=== PATIENT | female | born 1980 | race Caucasian/White ===

== ENCOUNTER → 2017-05-26 | Outpatient (CLI) | payer MEDICAID ==
[2017-05-26 13:53] LABS: HCT 34.2 % (34.0-46.0); HGB 11.2 gm/dL (11.4-16.0); MCH 31.6 pg (25.0-35.0); MCHC 32.8 g/dL (31.0-37.0); MCV 96.2 fL (80.0-100.0); Mean Platelet Volume 8.2; Platelet Count 210 k/uL (150-450); RBC 3.55 m/uL (3.80-5.40); RDW 12.6 % (11.5-15.5); WBC 9.8 k/uL (3.8-10.6)
[2017-05-26 13:59] LABS: Appearance,Urine Cloudy (Clear); Bilirubin,Urine Negative (Negative); Blood,Urine Negative (Negative); Color,Urine Yellow; Glucose,Urine (UA) Negative (Negative); Ketones,Urine Negative (Negative); Leukocyte Esterase,Urine Moderate (Negative); Mucus,Urine Occasional /hpf; Nitrite,Urine Negative (Negative); PH, Urine 6.5 (5.0-8.0); Protein,Urine Trace (Negative); RBC,Urine 2 /hpf (0-5); Specific Gravity,Urine 1.017 (1.001-1.035); Squamous Epithelial Cell,Urine 13 /hpf (0-4); Urobilinogen,Urine <2.0 mg/dL (<2.0); WBC,Urine 7 /hpf (0-5)
[2017-05-26 14:03] LABS: Glucose 87 mg/dL (74-99)
[2017-05-26 20:03] LABS: HIV AB P24 Non-Reactive (Non-Reactive); HIV P24 AG Non-Reactive (Non-Reactive)
[2017-05-27 06:25] LABS: Toxoplasma Antibody (IgG) <3.0 IU/mL (<7.2); Toxoplasma Antibody (IgM) <3.0 AU/mL (<8.0)
== END | disposition home or self-care (01) ==
LOC: LABWHC1 12:59
PROVIDERS: ATTEND Obstetrics & Gynecology
DX: Z34.02 Encounter for supervision of normal first pregnancy, second trimester (principal); Z3A.00 Weeks of gestation of pregnancy not specified
CPT/HCPCS: 36415; 81001; 82565; 82947; 85027; 86762; 86777; 86778; 86780; 86850; 86900; 86901; 87086; 87340; 87390

== ENCOUNTER 2017-07-14 14:18 | Outpatient (CLI) | payer MEDICAID ==
[2017-07-14 14:55] LABS: Appearance,Urine Clear (Clear); Bacteria,Urine Rare /hpf; Bilirubin,Urine Negative (Negative); Blood,Urine Negative (Negative); Color,Urine Light Yellow; Glucose,Urine (UA) Negative (Negative); Hyaline Casts,Urine 1 /lpf (0-2); Ketones,Urine Negative (Negative); Leukocyte Esterase,Urine Moderate (Negative); Mucus,Urine Rare /hpf; Nitrite,Urine Negative (Negative); Protein,Urine Negative (Negative); RBC,Urine 1 /hpf (0-5); Specific Gravity,Urine 1.008 (1.001-1.035); Squamous Epithelial Cell,Urine 4 /hpf (0-4); Urobilinogen,Urine <2.0 mg/dL (<2.0); WBC,Urine 3 /hpf (0-5)
[2017-07-14 15:31] LABS: Basophils % (A) 0 %; Eosinophils # (A) 0.1 k/uL (0-0.7); Eosinophils % (A) 1 %; HCT 37.7 % (34.0-46.0); HGB 12.3 gm/dL (11.4-16.0); Lymphocytes # (A) 2.1 k/uL (1.0-4.8); Lymphocytes % (A) 19 %; MCH 30.4 pg (25.0-35.0); MCHC 32.7 g/dL (31.0-37.0); MCV 92.8 fL (80.0-100.0); Mean Platelet Volume 8.7; Monocytes # (A) 0.7 k/uL (0-1.0); Monocytes % (A) 6 %; Neutrophils # (A) 8.2 k/uL (1.3-7.7); Neutrophils % (A) 72 %; Platelet Count 203 k/uL (150-450); RBC 4.06 m/uL (3.80-5.40); RDW 13.1 % (11.5-15.5); WBC 11.4 k/uL (3.8-10.6)
[2017-07-14 15:45] LABS: ALT 22 U/L (9-52); AST 21 U/L (14-36); Blood Urea Nitrogen 5 mg/dL (7-17); LDH 507 U/L (313-618); Uric Acid 2.6 mg/dL (3.7-7.4)
== END 2017-07-14 16:45 | disposition home or self-care (01) ==
LOC: FBPOP 14:18
PROVIDERS: ATTEND Obstetrics & Gynecology
DX: O13.3 Gestational [pregnancy-induced] hypertension without significant proteinuria, third trimester (principal); Z3A.30 30 weeks gestation of pregnancy
CPT/HCPCS: 59025; 81001; 82565; 83615; 84450; 84460; 84520; 84550; 85025

== ENCOUNTER → 2017-07-28 | Outpatient (CLI) | payer MEDICAID ==
--- NOTE | 2017-07-28 14:52 | US ---
EXAMINATION TYPE: US OB >= 14 wk fetus DATE OF EXAM: 07/28/2017 COMPARISON: None CLINICAL HISTORY: O36.63X0 LARGE FOR DATES: Growth TECHNIQUE: OBTA GESTATIONAL AGE / DATING Physician Established: (32 weeks/6 days) EDC: 09/16/2017 Dates by LMP: LMP unknown Dates by First Scan: No previous this is first scan here Dates by Current Scan: (33 weeks/3 days) EDC: 09/12/2017 SURVEY IUP: Single PLACENTA: Fundal, grade 3 PREVIA: No Previa DIEGO: 17.8 cm CERVICAL LENGTH (transabdominal: norm > 3.0cm): 4.3 cm BIOMETRY PRESENTATION: Vertex LIE: Longitudinal BPD: 8.6 cm 34 weeks / 5 days HC: 30.3 cm 33 weeks / 5 days AC: 29.2 cm 33 weeks / 2 days FL: 6.1 cm 31 weeks / 5 days ESTIMATED WEIGHT IN GRAMS: 2083 grams ESTIMATED WEIGHT IN LBS/OZ: 4 lbs. 9 oz. WEIGHT PERCENTAGE BASED ON ESTABLISHED DATES: 43% HC/AC: 1.0 Normal FL/AC: 21 Normal HEART RATE: 138 bpm RHYTHM: Normal IMPRESSION: Single live intrauterine with a sonographic gestational age of 33 weeks and 3 days and shani mated date of delivery of 09/12/2017, concordant with menstrual age. Weight percentage based on establ ished dates of 43%.
== END | disposition home or self-care (01) ==
LOC: RADUSWWP 13:37
PROVIDERS: ATTEND Obstetrics & Gynecology
DX: O36.63X0 Maternal care for excessive fetal growth, third trimester, not applicable or unspecified (principal); Z3A.33 33 weeks gestation of pregnancy
CPT/HCPCS: 76805

== ENCOUNTER 2017-08-24 18:30 | Outpatient (CLI) | payer MEDICAID ==
[2017-08-24 19:08] VITALS: BP 126/90; PULSE 106; RESP 18; TEMP 98.9
[2017-08-24 19:09] LABS: Appearance,Urine Cloudy (Clear); Bacteria,Urine Rare /hpf; Bilirubin,Urine Negative (Negative); Blood,Urine Negative (Negative); Budding Yeast,Urine Occasional /hpf; Color,Urine Yellow; Glucose,Urine (UA) Negative (Negative); Ketones,Urine Negative (Negative); Leukocyte Esterase,Urine Large (Negative); Mucus,Urine Rare /hpf; Nitrite,Urine Negative (Negative); Protein,Urine Negative (Negative); RBC,Urine 5 /hpf (0-5); Specific Gravity,Urine 1.009 (1.001-1.035); Squamous Epithelial Cell,Urine 14 /hpf (0-4); Urobilinogen,Urine <2.0 mg/dL (<2.0); WBC,Urine 14 /hpf (0-5)
[2017-08-24 19:41] LABS: Basophils % (A) 0 %; Eosinophils # (A) 0.2 k/uL (0-0.7); Eosinophils % (A) 1 %; HCT 33.5 % (34.0-46.0); HGB 10.9 gm/dL (11.4-16.0); Lymphocytes # (A) 2.6 k/uL (1.0-4.8); Lymphocytes % (A) 21 %; MCH 28.3 pg (25.0-35.0); MCHC 32.7 g/dL (31.0-37.0); Mean Platelet Volume 9.8; Monocytes # (A) 0.8 k/uL (0-1.0); Monocytes % (A) 6 %; Neutrophils # (A) 8.5 k/uL (1.3-7.7); Neutrophils % (A) 68 %; Platelet Count 190 k/uL (150-450); RBC 3.87 m/uL (3.80-5.40); RDW 13.9 % (11.5-15.5); WBC 12.4 k/uL (3.8-10.6)
[2017-08-24 19:49] LABS: MCV 86.4 fL (80.0-100.0)
[2017-08-24 20:02] LABS: ALT 17 U/L (9-52); AST 15 U/L (14-36); Blood Urea Nitrogen 4 mg/dL (7-17); LDH 370 U/L (313-618)
--- NOTE | 2017-09-06 08:58 | P.MSEPDOC ---
Presenting Problems - Arrival Data Date of Arrival on Unit: 08/24/17 Time of Arrival on Unit: 18:30 Mode of Transport: Ambulatory - Complaint OB-Reason for Admission/Chief Complaint: PIH Comment: 36-5/7 weeks Medical History - Information : 4 Para: 2 Term: 2 : 0 Abortions: Spontaneous or Elective: 1 Number of Living Children: 2 - Gestational Age Gestational Age by JOHANNY (wks/days): 41 Weeks and 1 Days Review of Systems - Review of Systems Constitutional: No problems Breast: No problems ENT: No problems Cardiovascular: No problems Respiratory: No problems Gastrointestinal: No problems Genitourinary: No problems Musculoskeletal: No problems Neurological: No problems Skin: No problems Comment: gall bladder removed 2011 Vital Signs - Temperature Temperature: 98.9 F Temperature Source: Temporal Artery Scan - Pulse Brachial Pulse Rate: 106 Pulse Assessment Method: Automatic Cuff - Respirations Oxygen Delivery Method: Room Air - Blood Pressure Right Arm Blood Pressure: 126/90 Blood Pressure Mean: 102 Blood Pressure Source: Automatic Cuff Medical Screen Scoring (Pre) - Cervical Exam Dilation: Exam Deferred Effacement: Exam Deferred Membranes: Intact - Uterine Contractions Frequency: N/A Duration: N/A Intensity: N/A - Maternal Vital Signs Maternal Temperature: N/A Maternal Blood Pressure: Diastolic > 89 = 1 Signs of Preeclampsia: N/A - Pain Assessment Pain Scale Used: Numeric (1 - 10) Pain Intensity: 0 - Maternal Trauma Maternal Trauma: N/A - Assessment Baseline FHR: 150 Heart Rate - NICHD Category: Category I (Normal) = 0 NST: Reactive - Total Score Total Score (Pre): 1 - Level of Risk Level of Risk: N/A Medical Screen Scoring (Post) - Cervical Exam Dilation: Exam Deferred Effacement: Exam Deferred Membranes: Intact - Uterine Contractions Frequency: N/A - Maternal Vital Signs Maternal Temperature: N/A Maternal Blood Pressure: Diastolic > 89 = 1 Signs of Preeclampsia: N/A Maternal Respirations: N/A - Pain Assessment Pain Intensity: 0 - Total Score Total Score (Post): 1 - Post Treatment Level of Risk Post Treatment Level of Risk: Low (0-5) Physician Notification (Post) - Physician Notified Physician Notified Date: 08/24/17 Physician Notified Time: 20:15 Physician/Practitioner Notified:: Dr Mireles Spoke With: New Order Received: Yes - Notification Comment Comment: discharge pt home to be off work and modified bedrest, follow up on Monday at scheduled appt Disposition - Disposition OB Disposition: Discharge to home, Written follow up instructions reviewed Discharge Date: 08/24/17 Discharge Time: 20:45 I agree with the RN Medical Screening Exam: Yes Risk & Benefit of care provided described in d/c instruction: Yes Diagnosis: UNSPECIFIED MATERNAL HYPERTENSION, THIRD TRIMESTER
== END 2017-08-24 20:45 | disposition home or self-care (01) ==
LOC: FBPOP 18:30
PROVIDERS: ATTEND Obstetrics & Gynecology
DX: O16.3 Unspecified maternal hypertension, third trimester (principal); Z3A.41 41 weeks gestation of pregnancy
CPT/HCPCS: 59025; 81001; 82565; 82570; 83615; 84156; 84450; 84460; 84520; 84550; 85025; 99215

== ENCOUNTER 2017-08-29 07:08 | Inpatient (IN) | payer MEDICAID ==
[2017-08-29 07:54] LABS: Basophils % (A) 0 %; Eosinophils # (A) 0.1 k/uL (0-0.7); Eosinophils % (A) 1 %; HGB 11.2 gm/dL (11.4-16.0); Lymphocytes # (A) 2.2 k/uL (1.0-4.8); Lymphocytes % (A) 19 %; MCH 28.4 pg (25.0-35.0); MCHC 32.9 g/dL (31.0-37.0); MCV 86.3 fL (80.0-100.0); Monocytes # (A) 0.8 k/uL (0-1.0); Monocytes % (A) 7 %; Neutrophils % (A) 70 %; Platelet Count 176 k/uL (150-450); RBC 3.93 m/uL (3.80-5.40); RDW 14.1 % (11.5-15.5); WBC 11.4 k/uL (3.8-10.6)
[2017-08-29] MEDS: LACTATED RINGERS 1,000 ML IV SCH ×3 (07:56→18:15)
[2017-08-29] MEDS: OXYTOCIN 20 UNITS/1000 ML NS 1,000 ML IV SCH ×2 (07:57→19:45)
[2017-08-29 08:17] VITALS: BMI 31.1
[2017-08-29] MEDS ORDERED: AMPICILLIN 2,000 MG in SODIUM CHLORIDE 0.9% 100 ML IVPB STA (08:44)
[2017-08-29] MEDS ORDERED: BUTORPHANOL 1 MG/ML 1 ML VIAL IV PRN (08:44)
[2017-08-29] MEDS: AMPICILLIN 1,000 MG in SODIUM CHLORIDE 0.9% 50 ML IVPB SCH ×3 (12:51→21:16)
[2017-08-29] MEDS ORDERED: fentaNYL (PF) 50 MCG/ML 5 ML AMP ONE (14:25)
[2017-08-29] MEDS ORDERED: SODIUM CHLORIDE 0.9% 100 ML BAG ONE (14:25)
[2017-08-29] MEDS ORDERED: BUPIVACAINE (PF) 0.25% 30 ML VIAL ONE (14:25)
[2017-08-29] MEDS ORDERED: BUPIVACAINE (PF) 0.25% 25 ML, fentaNYL (PF) 200 MCG in SODIUM CHLORIDE 0.9% 71 ML EPIDURAL ONE (15:05)
[2017-08-29] MEDS ORDERED: diphenhydrAMINE 50 MG/ML 1 ML VIAL IVP PRN ×2 (18:49)
[2017-08-29] MEDS ORDERED: HYDROCORTISONE 2.5% RECTAL CREAM 30 GM TUBE RECTAL PRN (18:49)
[2017-08-29] MEDS ORDERED: WITCH HAZEL 1 EACH MED..PAD TOPICAL PRN (18:49)
[2017-08-29] MEDS ORDERED: ZOLPIDEM 5 MG TAB PO PRN (18:49)
[2017-08-29] MEDS ORDERED: BENZOCAINE/MENTHOL SPRAY 1 GM/SPRAY AEROSOL TOPICAL PRN (18:49)
[2017-08-29] MEDS ORDERED: LANOLIN CREAM 5 GM TUBE TOPICAL PRN (18:49)
[2017-08-29] MEDS ORDERED: diphenhydrAMINE 50 MG CAP PO PRN (18:49)
[2017-08-29] MEDS ORDERED: diphenhydrAMINE 25 MG CAP PO PRN (18:49)
[2017-08-29] MEDS ORDERED: ACETAMINOPHEN TAB 325 MG TAB PO PRN (18:49)
[2017-08-29] MEDS ORDERED: SIMETHICONE 80 MG CHEWABLE PO PRN (18:49)
--- NOTE | 2017-08-29 18:52 | P.HPOB ---
History of Present Illness H&P Date: 08/29/17 Chief Complaint: Intrauterine at term: Gestational hypertension S is a 36-year-old at 37 weeks gestation who has gestational hypertension. She is noted to have had slight elevations in her blood pressure since approximately 35 weeks and yesterday in the office was noted have a blood pressure of 150/94 and was scheduled for induction today for same. Her Precis course otherwise was unremarkable and she is feeling well at this time. NST done yesterday was also reactive. Pertinent labs do include AB+ blood type Rh antibody was negative, rubella immune, hepatitis B surface antigen and RPR as well as HIV were all negative. Group B strep was negative. On physical exam vital signs are stable and afebrile. Heart regular, lungs clear, extremities are without pain. Osteopathic exam is unremarkable. She was dilated to 3 cm 80 % effaced and artificial rupture membranes was performed with clear fluid noted. heart tones were in the 130s to 140s and reactive. Abdomen is otherwise gravid. Assessment intrauterine at 37 weeks with gestational hypertension: Induction of labor with Pitocin augmentation and expectation for epidural for analgesia. Past Medical History History of Any Multi-Drug Resistant Organisms: None Reported Past Surgical History: Cholecystectomy, Tonsillectomy Past Psychological History: No Psychological Hx Reported Smoking Status: Former smoker Past Alcohol Use History: None Reported Past Drug Use History: None Reported - Past Family History Mother Additional Family Medical History / Comment(s): mother high BP Medications and Allergies Home Medications Medication Instructions Recorded Confirmed Type Pnv No.95/Ferrous Fum/Folic AC 1 each PO DAILY 07/14/17 08/29/17 History [ Multivitamin Tablet] Allergies Allergy/AdvReac Type Severity Reaction Status Date / Time No Known Allergies Allergy Verified 08/29/17 07:28 Exam Osteopathic Statement: *. No significant issues noted on an osteopathic structural exam other than those noted in the History and Physical/Consult. - Vital Signs Vital signs: Vital Signs Temp Pulse Resp BP Pulse Ox 08/29/17 08:05 97.4 F L 127 H 18 137/98 100 Intake and Output 08/29/17 08/29/17 08/29/17 06:59 14:59 22:59 Intake Total 1000 Balance 1000 Intake: IV 1000 Lactated Ringers 1,000 ml 1000 @ 125 mls/hr IV .Q8H [facility] Rx#:[id number] Other: Weight 74.843 kg Results Result Diagrams: 08/29/17 07:30 Abnormal Lab Results - Last 24 Hours (Table) 08/29/17 Range/Units 07:30 WBC 11.4 H (3.8-10.6) k/uL Hgb 11.2 L (11.4-16.0) gm/dL Neutrophils # 8.0 H (1.3-7.7) k/uL
--- NOTE | 2017-08-29 18:53 | P.PROBDLV ---
Vaginal Delivery Note - . Vaginal Delivery Note: Patient progressed to complete and pushing with spontaneous vaginal delivery of a viable female over intact perineum. Falling deliver the head nuchal cord 1 was reduced and baby was delivered from right occiput anterior position shoulders were easily delivered followed by the remainder the baby. Baby was then placed on mother's abdomen where the umbilical cord was allowed to pulsate for approximately 40 seconds prior to clamping and cutting. Once this was accomplished nursery personnel was present to assume care and placenta was delivered intact. Pitocin was then added to the IV. Mother and baby are stable following delivery. scores and weight are both pending at this time.
[2017-08-29] MEDS: SENNOSIDES-DOCUSATE SODIUM 1 EACH TAB PO SCH (21:16)
[2017-08-30] MEDS: IBUPROFEN 600 MG TAB PO PRN ×3 (04:23→19:44)
[2017-08-30] MEDS: SENNOSIDES-DOCUSATE SODIUM 1 EACH TAB PO SCH ×2 (07:38→20:15)
--- NOTE | 2017-08-30 08:46 | P.PNOBGVD ---
Subjective - Subjective Principal diagnosis: day 1 Interval history: Overall Domitila looks very good this morning. She does have some right flank pain and urinalysis was done. However there is no costovertebral angle tenderness no epigastric pain or other findings. She did have some very mild elevations of blood pressure through the night 130s over 90s. She denies symptoms no epigastric pain no headache no blurry vision deep tendon reflexes are normal and she has no significant edema. Likely pain is secondary to straining from pushing based on how she looks this morning and based on what she is describing. Otherwise she is doing very well. On physical exam vital signs are again stable with only very mildly elevated blood pressures. She is afebrile. Heart regular, lungs clear, extremities without pain. Abdomen soft uterus is firm below the umbilicus and her bowel sounds noted. Preeclamptic labs are pending. We'll plan to continue observation today and make decisions based on discharge later today depending on what her labs her lichen however symptoms evolve. Assessment day 1. Plan continue care. Patient reports: Reports appetite normal, Reports voiding normally, Reports pain well controlled, Reports ambulating normally : doing well Objective - Latest Vital Signs Latest vital signs: Vital Signs Temp Pulse Resp BP 08/30/17 07:49 98.4 F 72 14 144/67 08/30/17 06:01 106 H 143/92 08/30/17 05:00 135/91 08/30/17 04:02 142/100 08/30/17 04:00 98.6 F 95 16 144/102 08/30/17 00:43 108 H 08/30/17 00:00 98.3 F 121 H 16 129/82 08/29/17 20:58 97.9 F 113 H 16 123/77 08/29/17 20:28 97.9 F 107 H 16 147/90 08/29/17 19:58 105 H 16 135/84 08/29/17 19:43 111 H 16 138/76 08/29/17 19:28 98.1 F 111 H 16 137/74 08/29/17 19:13 112 H 16 150/83 08/29/17 18:54 99.1 F 107 H 20 132/75 Intake and Output 08/29/17 08/30/17 08/30/17 22:59 06:59 14:59 Intake Total 35.4 Balance 35.4 Intake: Intake, IV Titration 35.4 Amount Oxytocin 20 Units/1000 ml 35.4 Ns 1,000 ml @ 1 MILLIUNIT/MIN 3 mls/hr IV .Q24H [facility] Rx#:[id number] Other: # Voids 1 1 - Exam Lungs: bilateral: normal Abdomen: Present: other (Right flank and upper abdominal pain)
[2017-08-30 08:55] LABS: ALT 18 U/L (9-52); AST 21 U/L (14-36); Blood Urea Nitrogen 4 mg/dL (7-17); LDH 466 U/L (313-618); Uric Acid 3.2 mg/dL (3.7-7.4)
[2017-08-30 09:02] LABS: Basophils # (A) 0.1 k/uL (0-0.2); Basophils % (A) 0 %; Eosinophils # (A) 0.1 k/uL (0-0.7); Eosinophils % (A) 1 %; Lymphocytes # (A) 1.9 k/uL (1.0-4.8); Lymphocytes % (A) 10 %; MCH 29.4 pg (25.0-35.0); MCHC 33.3 g/dL (31.0-37.0); Mean Platelet Volume 9.5; Monocytes # (A) 0.8 k/uL (0-1.0); Monocytes % (A) 4 %; Neutrophils # (A) 15.1 k/uL (1.3-7.7); Neutrophils % (A) 83 %; Platelet Count 164 k/uL (150-450); RBC 4.09 m/uL (3.80-5.40); WBC 18.3 k/uL (3.8-10.6)
[2017-08-30 16:17] VITALS: RESP 18
[2017-08-31 08:54] VITALS: BP 127/87; PULSE 83; TEMP 97.9
--- NOTE | 2017-08-31 10:24 | P.DS ---
Providers Date of admission: 08/29/17 07:08 Expected date of discharge: 08/31/17 Attending physician: Gonzalo Julian Primary care physician: Stated None Hospital Course: Progress is doing very well post day 2. She is involuting, voiding, and she is tolerating her diet. She voices no complaints. Vital signs are stable and afebrile. Heart regular, lungs clear, extremities without pain. Abdomen is soft uterus is firm lochia is reported be light. Assessment day 2. Plan discharged home follow up with me in 6 weeks. Discharge instructions were thoroughly reviewed and all questions are answered for her prior to her discharge. Patient Condition at Discharge: Good Plan - Discharge Summary New Discharge Prescriptions: No Action Pnv No.95/Ferrous Fum/Folic AC [ Multivitamin Tablet] 1 each PO DAILY Discharge Medication List Pnv No.95/Ferrous Fum/Folic AC [ Multivitamin Tablet] 1 each PO DAILY [History] Follow up Appointment(s)/Referral(s): Gonzalo Julian DO [Doctor of Osteopathic Medicine] - 6 Weeks Activity/Diet/Wound Care/Special Instructions: No heavy lifting, limit stairs and driving, and pelvic rest. If any high temperatures, heavy bleeding, or severe pain call my office Discharge Disposition: HOME SELF-CARE
== END 2017-08-31 12:00 | disposition home or self-care (01) | DRG 775 ==
LOC: 4FBP 07:08
PROVIDERS: ADMIT Obstetrics & Gynecology; ATTEND Obstetrics & Gynecology
PROC: 10E0XZZ Delivery of Products of Conception, External Approach (ICD-10-PCS; principal; 2017-08-29)
PROC: 00HU33Z Insertion of Infusion Device into Spinal Canal, Percutaneous Approach (ICD-10-PCS; 2017-08-29)
PROC: 3E0R3NZ Introduction of Analgesics, Hypnotics, Sedatives into Spinal Canal, Percutaneous Approach (ICD-10-PCS; 2017-08-29)
PROC: 3E033VJ Introduction of Other Hormone into Peripheral Vein, Percutaneous Approach (ICD-10-PCS; 2017-08-29)
PROC: 10907ZC Drainage of Amniotic Fluid, Therapeutic from Products of Conception, Via Natural or Artificial Opening (ICD-10-PCS; 2017-08-29)
DX: O13.4 Gestational [pregnancy-induced] hypertension without significant proteinuria, complicating childbirth (principal); O69.81X0 Labor and delivery complicated by cord around neck, without compression, not applicable or unspecified; Z37.0 Single live birth; Z3A.37 37 weeks gestation of pregnancy; Z90.89 Acquired absence of other organs; Z90.49 Acquired absence of other specified parts of digestive tract; Z87.891 Personal history of nicotine dependence; Z88.6 Allergy status to analgesic agent
CPT/HCPCS: 82565; 83615; 84450; 84460; 84520; 84550; 85025; 88307

== ENCOUNTER → 2017-11-03 | Outpatient (CLI) | payer MEDICAID, OTHER ==
[2017-11-03 14:02] LABS: Basophils % (A) 1 %; Eosinophils # (A) 0.2 k/uL (0-0.7); Eosinophils % (A) 2 %; HCT 42.4 % (34.0-46.0); HGB 14.2 gm/dL (11.4-16.0); Lymphocytes # (A) 2.7 k/uL (1.0-4.8); Lymphocytes % (A) 32 %; MCH 28.8 pg (25.0-35.0); MCHC 33.4 g/dL (31.0-37.0); MCV 86.2 fL (80.0-100.0); Mean Platelet Volume 7.7; Monocytes # (A) 0.5 k/uL (0-1.0); Monocytes % (A) 6 %; Neutrophils # (A) 4.7 k/uL (1.3-7.7); Neutrophils % (A) 57 %; Platelet Count 264 k/uL (150-450); RBC 4.93 m/uL (3.80-5.40); RDW 15.1 % (11.5-15.5); WBC 8.3 k/uL (3.8-10.6)
== END | disposition home or self-care (01) ==
LOC: LABPAT 13:33
PROVIDERS: ATTEND Obstetrics & Gynecology
DX: Z01.812 Encounter for preprocedural laboratory examination (principal)
CPT/HCPCS: 36415; 85025

== ENCOUNTER 2017-11-09 09:51 | Day surgery (SDC) | payer MEDICAID, OTHER ==
[2017-11-03 12:00] VITALS: BMI 28.3
--- NOTE | 2017-11-08 16:48 | P.HPOB ---
History of Present Illness H&P Date: 11/08/17 Chief Complaint: family planning Domitila is a 37-year-old female who has completed her family planning and desires permanent sterilization. She is therefore scheduled for a lap laparoscopic tubal ligation with Filshie clips. Risks/benefits/alternatives to this procedure were discussed with the patient in detail and did include but were not limited to damage to bladder, bowel, vascular injuries, nerve damage, ureteral injuries, bleeding, and infection. Past Medical History Past Medical History: Asthma History of Any Multi-Drug Resistant Organisms: None Reported Past Surgical History: Cholecystectomy, Tonsillectomy Past Anesthesia/Blood Transfusion Reactions: Motion Sickness, Postoperative Nausea & Vomiting (PONV) Smoking Status: Former smoker - Past Family History Mother Family Medical History: Hypertension Additional Family Medical History / Comment(s): mother high BP Medications and Allergies Home Medications Medication Instructions Recorded Confirmed Type Mometasone Inhalr 220 Mcg/Puff 2 puff INHALATION QID PRN 11/03/17 11/03/17 History [Asmanex] Allergies Allergy/AdvReac Type Severity Reaction Status Date / Time No Known Allergies Allergy Verified 11/03/17 11:35 Exam Osteopathic Statement: *. No significant issues noted on an osteopathic structural exam other than those noted in the History and Physical/Consult. - OBG Physical Exam Breast: both: normal (no masses) Abdomen: bowel sounds normal, no diffuse tenderness, no bruit present, no guarding noted, no hepatomegaly, no splenomegaly, no mass Vulva: both: normal Vagina: normal moisture, no discharge Cervix: no lesion, no discharge Uterus: normal size, normal contour Adnexa: both: normal Anus/Rectum: normal perianal skin, no rectal mass, no hemorrhoids, heme negative
[~2017-11-09 09:51] MED LIST: DEXAMETHASONE SOD PHOSPHATE 10 MG/ML 1 ML VIAL IV ONE; HYDROmorphone 0.5 MG/0.5 ML SYRINGE IVP PRN; LACTATED RINGERS 1,000 ML IV SCH; ONDANSETRON 4 MG/2 ML VIAL IVP ONE
[2017-11-09] MEDS ORDERED: LIDOCAINE 1% 20 ML VIAL (10MG/ML) FOR IV START INTRADERMA ONE (10:34)
[2017-11-09] MEDS ORDERED: SCOPOLAMINE 1.5MG/72HR PATCH TRANSDERM ONE (10:35)
[2017-11-09] MEDS ORDERED: LIDOCAINE 1% INJ 10MG/ML (20 ML MDV) ONE (11:06)
[2017-11-09] MEDS ORDERED: NEOSTIGMINE 1 MG/ML 10 ML VIAL ONE (11:06)
[2017-11-09] MEDS ORDERED: GLYCOPYRROLATE 0.2 MG/ML 2 ML VIAL ONE (11:06)
[2017-11-09] MEDS ORDERED: KETOROLAC 30 MG/ML 1 ML VIAL ONE (11:06)
[2017-11-09] MEDS ORDERED: PROPOFOL 10 MG/ML 20 ML VIAL IV ONE (11:06)
[2017-11-09] MEDS ORDERED: NALOXONE 0.4 MG/ML 1 ML VIAL ONE (11:06)
[2017-11-09] MEDS ORDERED: fentaNYL (PF) 50 MCG/ML 2 ML AMP ONE (11:06)
[2017-11-09] MEDS ORDERED: ROCURONIUM BROMIDE 10 MG/ML 10 ML VIAL IV ONE (11:06)
[2017-11-09] MEDS ORDERED: SUCCINYLCHOLINE CHLORIDE 100 MG/5 ML SYR IV ONE (11:06)
[2017-11-09] MEDS ORDERED: diphenhydrAMINE 50 MG/ML 1 ML VIAL ONE (11:06)
[2017-11-09] MEDS ORDERED: MIDAZOLAM 2 MG/2 ML VIAL ONE (11:06)
[2017-11-09] MEDS ORDERED: BUPIVACAINE (PF) 0.5% 30 ML VIAL SQ ONE ×3 (11:12→11:25)
--- NOTE | 2017-11-09 11:42 | P.OP ---
Date of Procedure: 11/09/17 Preoperative Diagnosis: Family planning Postoperative Diagnosis: Same Procedure(s) Performed: Laparoscopic tubal occlusion with Filshie clips Anesthesia: RENETTA Surgeon: Gonzalo Julian Estimated Blood Loss (ml): 5 Urine output (ml): 20 Pathology: none sent Condition: stable Disposition: same day Operative Findings: Retroverted uterus Description of Procedure: Patient was taken to the operating suite where general anesthetic was found be adequate. She was prepped and draped in the normal sterile fashion and placed in the dorsal lithotomy position. Initially a speculum was inserted into the vagina and the anterior lip cervix identified and grasped with an Allis clamp. Uterus was then sounded to 10 cm and a uterine manipulator was inserted without difficulty. Red rubber catheter was used to drain the bladder of urine and other instruments were removed from vagina. Gloves were changed and attention was turned to the abdominal portion procedure where 3 mL of quarter percent Marcaine was injected periumbilically. Through this injected anesthetic a 5 mm skin incision was made. Through this incision under direct visualization with an optical trocar and sleeve the camera was inserted. Once peritoneal placement was assured gas was left fully insufflate the abdomen and patient was then placed in steep Trendelenburg position. A second 8 mm skin incision was then made 3 cm above the pubic symphysis in the midline. Through this incision a second trocar and sleeve were inserted under direct visualization. Uterus was then elevated and fallopian tubes identified. First the right fallopian tube than the left fallopian tube had a Filshie clip applied 2 cm from uterine cornu. Once this was accomplished with no bleeding noted in the mesosalpinx, instruments were removed and gas was allowed to expel from the abdomen. 5 deep breaths were provided during this process. 4-0 Vicryl was then used to close the incision subcuticularly and a total of 8 mL of quarter percent Marcaine was injected around the incisions. Instruments were then removed from the vagina. Sponge, lap, needle counts were all correct 2. Patient was then taken to the recovery room in stable and satisfactory condition. Plan - Discharge Summary New Discharge Prescriptions: New Ibuprofen [Motrin] 600 mg PO Q6HR PRN #30 tab PRN Reason: Pain No Action Mometasone Inhalr 220 Mcg/Puff [Asmanex] 2 puff INHALATION QID PRN PRN Reason: ASTHMA SX Discharge Medication List Mometasone Inhalr 220 Mcg/Puff [Asmanex] 2 puff INHALATION QID PRN 11/03/17 [ History] Ibuprofen [Motrin] 600 mg PO Q6HR PRN #30 tab 11/09/17 [Rx] Follow up Appointment(s)/Referral(s): Gonzalo Julian DO [Doctor of Osteopathic Medicine] - 2 Weeks Activity/Diet/Wound Care/Special Instructions: No heavy lifting, limit stairs and driving, and pelvic rest. If any high temperatures, heavy bleeding, or severe pain call my office Discharge Disposition: HOME SELF-CARE
[2017-11-09 12:07] VITALS: TEMP 97
[2017-11-09] MEDS ORDERED: ENALAPRILAT 1.25 MG/ML 1 ML VIAL IV ONE (12:09)
[2017-11-09 12:21] VITALS: RESP 18
[2017-11-09] MEDS ORDERED: hydrALAZINE HCL 20 MG/ML 1 ML VIAL IV ONE (12:21)
[2017-11-09] MEDS ORDERED: ACETAMINOPHEN IV (For NPO) 1,000 MG/100 ML VIAL IVPB ONE (12:32)
[2017-11-09 12:59] VITALS: BP 133/91; PULSE 78
== END 2017-11-09 13:19 | disposition home or self-care (01) ==
LOC: OR 09:51
PROVIDERS: ATTEND Obstetrics & Gynecology
DX: Z30.2 Encounter for sterilization (principal); J45.909 Unspecified asthma, uncomplicated; Z87.891 Personal history of nicotine dependence; Z79.899 Other long term (current) drug therapy
CPT/HCPCS: 81025; 58671; J2250; J0360; J1200; J1100; J2310; J2710; J2405; J2001; J3010; J1885; J0131; J0330; J2704